=== PATIENT | female | born 1930 | race Caucasian/White ===

== ENCOUNTER 2017-05-08 11:59 | Inpatient (IN) | payer OTHER, MEDICARE ==
[~2017-05-08] VITALS: Ht 157.5 cm; Wt 54.0 kg
[~2017-05-08 11:59] MED LIST: ATIVAN1 MG PO; CALCIUM 500 +1 EAC4 PO; CELECOXIB100 MG PO; CENTRUM SILVER1 EAC3 PO; CLONAZEPAM1 MG PO; CYANOCOBALAM1000 MCG PO; EXELON PATCH4.6 MG TD; GLUCOSAMINE &1 EACH PO; GLUCOSAMINE H1500 MG PO; KLONOPIN1 MG PO; LIDODERM 5% P1 PATCH TD; NAMENDA5 MG PO; NORVASC10 MG PO; OMEGA-31000 M1 PO; PREMARIN0.3 MG PO; PROBIOTIC1 EAC1 PO; SECTRAL200 MG PO; SINEMET 10-1001 EACH PO; TAMIFLU75 MG PO; TYLENOL EXTRA500 MG PO; VITAMIN D31000 UNIT PO; ZOFRAN ODT4 MG PO; ZOLOFT100 MG PO
[2017-05-08 14:15] LABS: APPEARANCE CLOUDY ((CLEAR)); BILIRUBIN NEGATIVE; BLOOD SMALL; COLOR AMBER ((YELLOW)); GLUCOSE (STRIP) NEGATIVE; KETONES NEGATIVE; LEUKOCYTES MODERATE; NITRITE POSITIVE; PROTEIN (STRIP) 100; SPECIFIC GRAVITY 1.015 (1.000-1.030); UROBILINOGEN 0.2 MG/DL (0.2-1.0)
[2017-05-08 14:18] LABS: BASOPHIL (%) 0.1 % (0-1); EOSINOPHIL (%) 0 % (0-5); HEMATOCRIT 36.5 % (36.0-46.0); HEMOGLOBIN 12.2 G/DL (11.9-15.5); IMMATURE GRANULOCYTE (%) 0.3 % (0.0-0.7); LYMPHOCYTE (%) 5.8 % (15-42); LYMPHOCYTE COUNT 0.6 K/uL (1.0-2.8); MCH 33.4 PG (29.0-34.0); MCHC 33.4 G/DL (30.0-36.0); MONOCYTE (%) 5.5 % (3-12); MONOCYTE COUNT 0.5 K/uL (0-0.8); NEUTROPHIL (%) 88.3 % (45-76); NEUTROPHIL COUNT 8.5 K/uL (1.8-6.4); PLATELET COUNT 103 K/uL (156-360); RBC DIS.WIDTH-CV 11.9 % (11.8-14.6); RBC DIS.WIDTH-SD 43.6 % (39-53); RED BLOOD COUNT 3.65 M/uL (3.80-5.20); WHITE BLOOD COUNT 9.7 K/uL (4.1-10.2)
[2017-05-08 14:22] LABS: BACTERIA NONE SEEN /HPF; EPITHELIAL CELLS NONE SEEN /HPF; MUCUS NONE SEEN /LPF; RED BLOOD CELLS 0-5 /HPF (0-5); UCUL ADDED? YES; WHITE BLOOD CELLS TNTC /HPF (0-5)
[2017-05-08 14:25] LABS: ALBUMIN 4.3 g/dL (3.2-4.8)
[2017-05-08 14:26] LABS: CHLORIDE 105 mEq/L (99-109); POTASSIUM 4.1 mEq/L (3.7-5.4); SODIUM 141 mEq/L (136-147)
[2017-05-08 14:28] LABS: GLUCOSE 132 mg/dL (70-99); TOTAL PROTEIN 7.2 g/dL (6.4-8.3)
[2017-05-08 14:30] LABS: TOTAL BILIRUBIN 0.6 mg/dL (0.0-1.0)
[2017-05-08 14:31] LABS: ALKALINE PHOSPHATASE 59 IU/L (3-129)
[2017-05-08 14:32] LABS: CREATININE 1.3 mg/dL (0.6-1.3); GFR ESTIMATE (CALCULATED) 41 mL/min/
[2017-05-08 14:33] LABS: AST (GOT) 32 IU/L (2-34); UREA NITROGEN (BUN) 19 mg/dL (9-23)
[2017-05-08 14:35] LABS: ALT (GPT) 22 IU/L (3-49)
[2017-05-08] MEDS ORDERED: LIDODERM 5% P1 PATCH TD (15:56)
[2017-05-08] MEDS ORDERED: NAMENDA10 MG PO (15:57)
[2017-05-08] MEDS ORDERED: OMEGA III EPA1000 MG PO (15:59)
[2017-05-08] MEDS ORDERED: ZYPREXA2.5 MG PO (15:59)
[2017-05-08] MEDS ORDERED: ZOLOFT50 MG PO (16:04)
[2017-05-08] MEDS ORDERED: URO-MP CAPSULE1 EACH PO (16:07)
[2017-05-08 17:49] VITALS: BP 111/54
[2017-05-09 00:01] VITALS: BP 106/54
[2017-05-09 02:33] LABS: C DIFF TOXIN POSITIVE (NEGATIVE)
[2017-05-09 06:48] LABS: HEMATOCRIT 30.4 % (36.0-46.0); MCH 33.6 PG (29.0-34.0); MCHC 33.6 G/DL (30.0-36.0); NRBC (%) 0.4 /100 WBC (0-0); RBC DIS.WIDTH-CV 12.3 % (11.8-14.6); RBC DIS.WIDTH-SD 44.9 % (39-53); RED BLOOD COUNT 3.04 M/uL (3.80-5.20); WHITE BLOOD COUNT 8.1 K/uL (4.1-10.2)
[2017-05-09 07:10] LABS: HEMOGLOBIN 10.2 G/DL (11.9-15.5)
[2017-05-09 07:12] LABS: ALBUMIN 3.2 G/DL (3.2-4.8); ALKALINE PHOSPHATASE 36 IU/L (3-129); ALT (GPT) 24 IU/L (3-49); AST (GOT) 45 IU/L (2-34); CHLORIDE 110 MEQ/L (99-109); CREATININE 1.1 MG/DL (0.6-1.3); GFR ESTIMATE (CALCULATED) 50 mL/min/; GLUCOSE 109 mg/dL (70-99); POTASSIUM 3.6 MEQ/L (3.7-5.4); SODIUM 142 MEQ/L (136-147); TOTAL BILIRUBIN 0.5 MG/DL (0.0-1.0); UREA NITROGEN (BUN) 17 mg/dL (9-23)
[2017-05-09 07:39] LABS: PLAT.SUFFICIENCY DECREASED; PLATELET COUNT 73 K/uL (156-360)
[2017-05-09 07:57] VITALS: BP 134/80
[2017-05-09 13:00] VITALS: BP 105/65
[2017-05-09 16:00] VITALS: BP 124/78
[2017-05-09 23:49] VITALS: BP 156/66
[2017-05-10 07:07] LABS: BASOPHIL (%) 0.1 % (0-1); EOSINOPHIL (%) 0.8 % (0-5); EOSINOPHIL COUNT 0.1 K/uL (0-0.3); HEMATOCRIT 34.7 % (36.0-46.0); HEMOGLOBIN 11.5 G/DL (11.9-15.5); IMMATURE GRANULOCYTE (%) 0.5 % (0.0-0.7); LYMPHOCYTE (%) 16.5 % (15-42); LYMPHOCYTE COUNT 1.4 K/uL (1.0-2.8); MCH 33.9 PG (29.0-34.0); MCHC 33.1 G/DL (30.0-36.0); MCV 102.4 FL (83-99); MONOCYTE (%) 8.8 % (3-12); MONOCYTE COUNT 0.7 K/uL (0-0.8); NEUTROPHIL (%) 73.3 % (45-76); NEUTROPHIL COUNT 6.1 K/uL (1.8-6.4); PLATELET COUNT 76 K/uL (156-360); RBC DIS.WIDTH-CV 12.1 % (11.8-14.6); RBC DIS.WIDTH-SD 45.6 % (39-53); RED BLOOD COUNT 3.39 M/uL (3.80-5.20); WHITE BLOOD COUNT 8.4 K/uL (4.1-10.2)
[2017-05-10 07:21] LABS: CHLORIDE 105 MEQ/L (99-109); GFR ESTIMATE (CALCULATED) 56 mL/min/; GLUCOSE 105 mg/dL (70-99); MAGNESIUM 1.1 mg/dl (1.3-2.7); POTASSIUM 3.4 MEQ/L (3.7-5.4); SODIUM 140 MEQ/L (136-147); UREA NITROGEN (BUN) 13 mg/dL (9-23)
[2017-05-10 08:45] VITALS: BP 147/72
[2017-05-10 16:59] VITALS: BP 153/70
[2017-05-11 07:12] VITALS: BP 149/72
[2017-05-11 11:34] VITALS: BP 145/59
[2017-05-11 16:53] VITALS: BP 160/57
[2017-05-12 06:07] VITALS: BP 180/98
[2017-05-12 07:53] VITALS: BP 148/72
[2017-05-12 09:27] LABS: HEMATOCRIT 35.2 % (36.0-46.0); HEMOGLOBIN 11.5 G/DL (11.9-15.5); MCH 32.9 PG (29.0-34.0); MCHC 32.7 G/DL (30.0-36.0); MCV 100.6 FL (83-99); PLATELET COUNT 109 K/uL (156-360); RBC DIS.WIDTH-CV 11.9 % (11.8-14.6); WHITE BLOOD COUNT 5.3 K/uL (4.1-10.2)
[2017-05-12 09:57] LABS: CHLORIDE 101 MEQ/L (99-109); CREATININE 1.1 MG/DL (0.6-1.3); GFR ESTIMATE (CALCULATED) 50 mL/min/; GLUCOSE 98 mg/dL (70-99); POTASSIUM 4.3 MEQ/L (3.7-5.4); SODIUM 137 MEQ/L (136-147); UREA NITROGEN (BUN) 13 mg/dL (9-23)
[2017-05-13 00:14] VITALS: BP 154/83
[2017-05-13 06:07] LABS: HEMATOCRIT 33.6 % (36.0-46.0); HEMOGLOBIN 11.1 G/DL (11.9-15.5); MCH 33.2 PG (29.0-34.0); MCV 100.6 FL (83-99); PLATELET COUNT 103 K/uL (156-360); RBC DIS.WIDTH-CV 11.7 % (11.8-14.6); RBC DIS.WIDTH-SD 42.9 % (39-53); RED BLOOD COUNT 3.34 M/uL (3.80-5.20); WHITE BLOOD COUNT 6.2 K/uL (4.1-10.2)
[2017-05-13 06:31] LABS: CHLORIDE 105 MEQ/L (99-109); CREATININE 1.2 MG/DL (0.6-1.3); GFR ESTIMATE (CALCULATED) 45 mL/min/; GLUCOSE 95 mg/dL (70-99); POTASSIUM 3.9 MEQ/L (3.7-5.4); SODIUM 137 MEQ/L (136-147); UREA NITROGEN (BUN) 18 mg/dL (9-23)
[2017-05-13 08:14] VITALS: BP 122/78
[2017-05-14 00:06] VITALS: BP 176/84
[2017-05-14 08:00] VITALS: BP 124/68
[2017-05-14 15:55] VITALS: BP 134/78
[2017-05-15] VITALS: BP 160/84
[2017-05-15 03:31] VITALS: BP 160/84
[2017-05-15 08:13] VITALS: BP 102/80
[2017-05-15 23:00] VITALS: BP 143/74
[2017-05-16 07:59] VITALS: BP 179/122
[2017-05-16] MEDS ORDERED: VANCOMYCIN HCL125 MG PO (11:49)
[2017-05-16 15:05] VITALS: BP 140/70
== END 2017-05-16 16:14 | disposition home or self-care (01) | DRG 372 ==
LOC: EME 11:59 → EDOF 16:01 → 5SOUTH 16:01 → ENRESERV 16:03 → 5SOUTH 17:30
PROVIDERS: Emergency Medicine Emergency Medical Services; Hospitalist; Internal Medicine; Physician Assistant; Physician Assistant Medical
DX: A04.71 Enterocolitis due to Clostridium difficile, recurrent (principal); J10.1 Influenza due to other identified influenza virus with other respiratory manifestations; N39.0 Urinary tract infection, site not specified; B96.89 Other specified bacterial agents as the cause of diseases classified elsewhere; E86.0 Dehydration; F03.91 Unspecified dementia, unspecified severity, with behavioral disturbance; I10 Essential (primary) hypertension; D69.6 Thrombocytopenia, unspecified; I48.91 Unspecified atrial fibrillation; R29.6 Repeated falls; F41.9 Anxiety disorder, unspecified; Z88.2 Allergy status to sulfonamides; Z88.0 Allergy status to penicillin; Z88.5 Allergy status to narcotic agent; Z88.6 Allergy status to analgesic agent
CPT/HCPCS: 70450; 71045; 80048; 80053; 81003; 82948; 83605; 83735; 85025; 85027; 87040; 87077; 87086; 87186; 87493; 87502; 87651 90; 92610 GN; 99281; 99285; J0696; J1644; J2060; J3475; J7042

== ENCOUNTER 2017-07-21 12:41 | Emergency (ER) | payer OTHER, MEDICARE ==
[~2017-07-21] VITALS: Ht 152.4 cm; Wt 47.6 kg
[~2017-07-21 12:41] MED LIST changes: +NAMENDA10 MG PO; +OMEGA III EPA1000 MG PO; +URO-MP CAPSULE1 EACH PO; +VANCOMYCIN HCL125 MG PO; +ZOLOFT50 MG PO; +ZYPREXA2.5 MG PO
[2017-07-21 13:25] LABS: BASOPHIL (%) 0 % (0-1); EOSINOPHIL (%) 0.7 % (0-5); EOSINOPHIL COUNT 0.1 K/uL (0-0.3); HEMATOCRIT 35.5 % (36.0-46.0); IMMATURE GRANULOCYTE (%) 0.2 % (0.0-0.7); LYMPHOCYTE COUNT 1.4 K/uL (1.0-2.8); MCH 33.9 PG (29.0-34.0); MCHC 33.8 G/DL (30.0-36.0); MONOCYTE (%) 8.1 % (3-12); MONOCYTE COUNT 0.7 K/uL (0-0.8); NEUTROPHIL COUNT 5.9 K/uL (1.8-6.4); PLATELET COUNT 125 K/uL (156-360); RBC DIS.WIDTH-CV 11.9 % (11.8-14.6); RBC DIS.WIDTH-SD 43.8 % (39-53); RED BLOOD COUNT 3.54 M/uL (3.80-5.20)
[2017-07-21 13:27] LABS: MCV 100.3 FL (83-99)
[2017-07-21 13:33] LABS: CHLORIDE 106 mEq/L (99-109); POTASSIUM 4.8 mEq/L (3.7-5.4); SODIUM 140 mEq/L (136-147)
[2017-07-21 13:34] LABS: GLUCOSE 104 mg/dL (70-99)
[2017-07-21 13:38] LABS: CREATININE 1.4 mg/dL (0.6-1.3); GFR ESTIMATE (CALCULATED) 38 mL/min/
[2017-07-21 13:39] LABS: UREA NITROGEN (BUN) 24 mg/dL (9-23)
[2017-07-21 17:26] VITALS: BP 155/79
== END 2017-07-21 17:43 | disposition home or self-care (01) ==
LOC: EME 12:41
PROVIDERS: Emergency Medicine
DX: S09.90XA Unspecified injury of head, initial encounter (principal); M79.601 Pain in right arm; M79.602 Pain in left arm; W01.0XXA Fall on same level from slipping, tripping and stumbling without subsequent striking against object, initial encounter; R29.6 Repeated falls; F03.90 Unspecified dementia, unspecified severity, without behavioral disturbance, psychotic disturbance, mood disturbance, and anxiety; I10 Essential (primary) hypertension
CPT/HCPCS: 70450; 80048; 81003; 85025; 93005; 99281; 99285

== ENCOUNTER 2017-07-28 17:40 | Emergency (ER) | payer OTHER, MEDICARE ==
[~2017-07-28] VITALS: Ht 144.8 cm; Wt 53.0 kg
[2017-07-28 18:47] LABS: BASOPHIL (%) 0 % (0-1); EOSINOPHIL (%) 1.3 % (0-5); EOSINOPHIL COUNT 0.1 K/uL (0-0.3); HEMATOCRIT 34.2 % (36.0-46.0); HEMOGLOBIN 11.4 G/DL (11.9-15.5); IMMATURE GRANULOCYTE (%) 0.1 % (0.0-0.7); LYMPHOCYTE (%) 30.6 % (15-42); LYMPHOCYTE COUNT 2.1 K/uL (1.0-2.8); MCH 33.6 PG (29.0-34.0); MCHC 33.3 G/DL (30.0-36.0); MCV 100.9 FL (83-99); MONOCYTE (%) 11.9 % (3-12); MONOCYTE COUNT 0.8 K/uL (0-0.8); NEUTROPHIL (%) 56.1 % (45-76); NEUTROPHIL COUNT 3.8 K/uL (1.8-6.4); PLATELET COUNT 124 K/uL (156-360); RBC DIS.WIDTH-CV 11.9 % (11.8-14.6); RED BLOOD COUNT 3.39 M/uL (3.80-5.20); WHITE BLOOD COUNT 6.7 K/uL (4.1-10.2)
[2017-07-28 18:57] LABS: CHLORIDE 105 mEq/L (99-109); POTASSIUM 4.9 mEq/L (3.7-5.4); SODIUM 141 mEq/L (136-147)
[2017-07-28 18:58] LABS: APPEARANCE SL.HAZY ((CLEAR)); BILIRUBIN NEGATIVE; BLOOD NEGATIVE; COLOR AMBER ((YELLOW)); GLUCOSE (STRIP) NEGATIVE; KETONES NEGATIVE; LEUKOCYTES LARGE; NITRITE NEGATIVE; PROTEIN (STRIP) 30; SPECIFIC GRAVITY 1.019 (1.000-1.030); UROBILINOGEN 0.2 MG/DL (0.2-1.0)
[2017-07-28 18:59] LABS: GLUCOSE 107 mg/dL (70-99)
[2017-07-28 19:03] LABS: CREATININE 1.6 mg/dL (0.6-1.3); GFR ESTIMATE (CALCULATED) 32 mL/min/
[2017-07-28 19:04] LABS: UREA NITROGEN (BUN) 30 mg/dL (9-23)
[2017-07-28 19:13] LABS: BACTERIA 2+ /HPF; EPITHELIAL CELLS RARE /HPF; MUCUS NONE SEEN /LPF; RED BLOOD CELLS NONE SEEN /HPF (0-5); UCUL ADDED? YES; WHITE BLOOD CELLS TNTC /HPF (0-5)
[2017-07-28] MEDS ORDERED: KEFLEX500 MG PO (20:27)
[2017-07-28 21:14] VITALS: BP 153/62
== END 2017-07-28 21:15 ==
LOC: EME 17:40
PROVIDERS: Emergency Medicine
DX: S00.83XA Contusion of other part of head, initial encounter (principal); M25.561 Pain in right knee; W18.30XA Fall on same level, unspecified, initial encounter; R29.6 Repeated falls; N39.0 Urinary tract infection, site not specified; F03.90 Unspecified dementia, unspecified severity, without behavioral disturbance, psychotic disturbance, mood disturbance, and anxiety; I10 Essential (primary) hypertension; F41.9 Anxiety disorder, unspecified; F32.9 Major depressive disorder, single episode, unspecified; Z88.5 Allergy status to narcotic agent; Z88.2 Allergy status to sulfonamides; Z88.0 Allergy status to penicillin
CPT/HCPCS: 70450; 70486; 73564; 80048; 81003; 85025; 87077; 87086; 87186; 99281; 99284; J0696